=== PATIENT | female | born 1980 | race Caucasian/White ===

== ENCOUNTER → 2023-03-18 | Outpatient (CLI) | payer BC ==
--- NOTE | 2023-04-02 13:18 | MM ---
Reason for Exam: Screening (asymptomatic). Last mammogram was performed 1 year(s) and 1 month(s) ago. Patient History: Menarche at age 12. First Full-Term at age 19. Hysterectomy at age 35. Patient has history of breast feeding. Maternal aunt had breast cancer, age 40. Risk Values: Cara 5 year model risk: 0.6%. NCI Lifetime model risk: 8.8%. Prior Study Comparison: 03/22/2016 Bilateral Screening Mammogram, [facility] . 11/10/2019 Bilateral Screening Mammogram, [facility] . 02/26/2022 Bilateral Screening Mammogram, [facility] . Tissue Density: The breast tissue is heterogeneously dense. This may lower the sensitivity of mammography. Findings: Analyzed By CAD. Asymmetry right breast measuring 13 mm 8.0 cm from nipple in the right breast on CC view not well appreciated on MLO view. Asymmetry left breast measuring 18 mm 6.6 MET from the nipple on CC view. Overall Assessment: Incomplete: need additional imaging evaluation, BI-RAD 0 Management: Diagnostic Mammogram of both breasts. [facility] will attempt to contact patient to return for supplemental views and ultrasound if indicated. Patient should continue monthly self-breast exams. A clinical breast exam by your physician is recommended on an annual basis. This exam should not preclude additional follow-up of suspicious palpable abnormalities. Note on Cara scores and lifetime risk: 1. A Cara score greater than 3% is considered moderate risk. If this is the case, consider specialist referral to assess eligibility for a risk reducing agent. 2. If overall lifetime risk for the development of breast cancer is 20% or higher, the patient may qualify for future screening with alternating mammogram and breast MRI. Electronically signed and approved by: Suresh Car DO
== END | disposition home or self-care (01) ==
LOC: RADMAMWWP 16:13
PROVIDERS: ATTEND Family Medicine
DX: Z12.31 Encounter for screening mammogram for malignant neoplasm of breast (principal); Z80.3 Family history of malignant neoplasm of breast
CPT/HCPCS: 77067

== ENCOUNTER → 2023-04-04 | Outpatient (CLI) | payer BC, OTHER ==
--- NOTE | 2023-04-04 09:24 | MM ---
Reason for Exam: Additional evaluation requested from prior study. Last screening mammogram was performed less than 1 month ago. Patient History: Menarche at age 12. First Full-Term at age 19. Hysterectomy at age 35. Patient has history of breast feeding. Maternal aunt had breast cancer, age 40. Risk Values: Cara 5 year model risk: 0.6%. NCI Lifetime model risk: 8.8%. Prior Study Comparison: 02/26/2022 Bilateral Screening Mammogram, [facility] . 03/18/2023 Bilateral MG screening mammo w CAD, [facility]. Tissue Density: The breast tissue is heterogeneously dense. This may lower the sensitivity of mammography. Findings: Analyzed By CAD. Under compression no persistent suspicious focal asymmetries are evident. No suspicious groups of microcalcifications, spiculated or lobular masses, architectural distortion or other secondary signs of malignancy are mammographically apparent. Overall Assessment: Benign, BI-RAD 2 Management: Screening Mammogram of both breasts in 1 year. A negative mammogram report should not preclude additional follow up of suspicious palpable abnormalities. Patient should continue monthly self breast exam. A clinical breast exam by your physician is recommended on an annual basis and results should be correlated with mammographic findings. Electronically signed and approved by: Moises Stafford D.O. Radiologis
== END | disposition home or self-care (01) ==
LOC: RADMAMWWP 08:42
PROVIDERS: ATTEND Family Medicine
DX: R92.333 Mammographic heterogeneous density, bilateral breasts (principal); Z80.3 Family history of malignant neoplasm of breast
CPT/HCPCS: 77062; 77066

== ENCOUNTER 2023-07-24 07:38 | Day surgery (SDC) | payer OTHER ==
[2023-07-21 16:34] VITALS: BMI 29.5
--- NOTE | 2023-07-24 08:03 | P.GSHP ---
History of Present Illness H&P Date: 07/24/23 CHIEF COMPLAINT: Change in bowel habits HISTORY OF PRESENT ILLNESS: The patient is a 43-year-old female who presents for change in bowel habits over 6 month. Lower endoscopy was offered for further evaluation and management. PAST MEDICAL HISTORY: Please see list. PAST SURGICAL HISTORY: Please see list. MEDICATIONS: Please see list. ALLERGIES: Please see list. SOCIAL HISTORY: No illicit drug use FAMILY HISTORY: No reports of Crohn disease or ulcerative colitis. REVIEW OF ORGAN SYSTEMS: CONSTITUTIONAL: No reports of fevers or chills. PHYSICAL EXAM: VITAL SIGNS: Stable GENERAL: Well-developed pleasant in no acute distress. HEENT: No scleral icterus. Extraocular movements grossly intact. Moist buccal mucosa. NECK: Supple without lymphadenopathy. CHEST: Unlabored respirations. Equal bilateral excursions. CARDIOVASCULAR: Regular rate and rhythm. Distal 2+ pulses. ABDOMEN: Soft, nontender, nondistended. MUSCULOSKELETAL: No clubbing, cyanosis, or edema. ASSESSMENT: 1. Change in bowel habit PLAN: 1. Recommend proceeding with a lower endoscopy Past Medical History Past Medical History: Hyperlipidemia, Hypertension Additional Past Medical History / Comment(s): abdominal pain intermittently w/ n/v History of Any Multi-Drug Resistant Organisms: None Reported Past Surgical History: Hysterectomy Additional Past Surgical History / Comment(s): tummy tuck and breast left Past Anesthesia/Blood Transfusion Reactions: No Reported Reaction Additional Past Anesthesia/Blood Transfusion Reaction / Comment(s): no hx blood transfusion Smoking Status: Never smoker - Past Family History Mother Family Medical History: No Reported History, Cancer Additional Family Medical History / Comment(s): maternal aunt breast CA Medications and Allergies Home Medications Medication Instructions Recorded Confirmed Type ARIPiprazole [Abilify] 2 mg PO HS 07/21/23 07/21/23 History Acetaminophen [Tylenol] 325 - 650 mg PO Q4H PRN 07/21/23 07/21/23 History Atorvastatin [Lipitor] 20 mg PO HS 07/21/23 07/21/23 History Escitalopram [Lexapro] 20 mg PO HS 07/21/23 07/21/23 History Multivitamin/Iron/Folic Acid 1 each PO DAILY 07/21/23 07/21/23 History [Centrum Women Tablet] lisinopriL [Lisinopril] 40 mg PO QAM 07/21/23 07/21/23 History Allergies Allergy/AdvReac Type Severity Reaction Status Date / Time No Known Allergies Allergy Verified 07/24/23 08:00
[2023-07-24] MEDS: LACTATED RINGERS 1,000 ML IV SCH (08:17)
[2023-07-24] MEDS ORDERED: LIDOCAINE 1% INJ 10MG/ML (20 ML MDV) ONE (08:23)
[2023-07-24] MEDS ORDERED: PROPOFOL 10 MG/ML 20 ML VIAL IV ONE (08:23)
[2023-07-24 08:36] LABS: Basophils # (A) 0.1 k/uL (0-0.2); Basophils % (A) 1 %; Eosinophils # (A) 0.1 k/uL (0-0.7); Eosinophils % (A) 2 %; HCT 41.4 % (34.0-46.0); HGB 13.6 gm/dL (11.4-16.0); Lymphocytes # (A) 2.1 k/uL (1.0-4.8); Lymphocytes % (A) 31 %; MCH 30.9 pg (25.0-35.0); MCV 93.9 fL (80.0-100.0); Mean Platelet Volume 7.2; Monocytes # (A) 0.3 k/uL (0-1.0); Monocytes % (A) 5 %; Neutrophils # (A) 3.9 k/uL (1.3-7.7); Neutrophils % (A) 60 %; Platelet Count 415 k/uL (150-450); RBC 4.41 m/uL (3.80-5.40); RDW 12.5 % (11.5-15.5); WBC 6.6 k/uL (3.8-10.6)
[2023-07-24 08:41] VITALS: RESP 16; TEMP 97.8
--- NOTE | 2023-07-24 08:59 | P.PCN ---
Date of Procedure: 07/24/23 Description of Procedure: PREOPERATIVE DIAGNOSIS: Gastrointestinal bleeding POSTOPERATIVE DIAGNOSIS: Gastritis with bleeding Arteriovenous malformation, angular incisura Gastroesophageal reflux disease Diaphragmatic hiatal hernia OPERATION: Esophagogastroduodenoscopy with Gold probe for arteriovenous malformation Esophagogastroduodenoscopy with biopsies along esophagus,antrum and duodenum SURGEON: Nicolle Smith MD ANESTHESIA: MAC. INDICATIONS: The patient is a 43-year-old female who presents with reflux disease. Benefits and risks of the procedure were described. Informed consent was obtained. DESCRIPTION: The patient was brought into the endoscopy suite and laid in the left lateral decubitus position. An Olympus gastroscope was passed along the posterior oropharynx down to the distal esophagus where the squamocolumnar junction was encountered at 35 cm from the incisors. The stomach was entered and no bile reflux was found. Angularis incisura arteriovenous malformation was identified with her pre-existing history of GI bleed and ablated using gold probe. Additional findings are listed below. Biopsies with cold forceps were obtained of the antrum. The first through third portion of the duodenum was examined. Retroflexion of the scope confirmed Hill grade 2 lower esophageal valve. The squamocolumnar junction demonstrated LA grade B erosive esophagitis. The stomach was desufflated. The patient tolerated the procedure well. FINDINGS: Squamocolumnar junction 35 cm from the incisors. Diaphragmatic hiatus at 35 cm. Hill grade 2 lower esophageal valve. LA grade B erosive esophagitis.Biopsies obtained Biopsies obtained of the duodenum. Chronic gastritis with biopsies obtained. Angularis incisura arteriovenous malformation ablated using gold probe. RECOMMENDATIONS: Upper endoscopy as needed.
--- NOTE | 2023-07-24 09:08 | P.PCN ---
Date of Procedure: 07/24/23 Description of Procedure: PREOPERATIVE DIAGNOSIS: Gastrointestinal bleeding Chronic constipation POSTOPERATIVE DIAGNOSIS: Internal and external hemorrhoids, grade 2 OPERATION: Colonoscopy to the cecum, ileocecal valve and appendiceal orifice. SURGEON: Nicolle Smith MD. ANESTHESIA: MAC. INDICATIONS: The patient is a 43-year-old female who presents with GI bleed. Benefits and risks were described and informed consent was obtained. DESCRIPTION OF PROCEDURE: The patient had undergone GoLYTELY prep. The patient had been brought into the operating room and laid in the left lateral decubitus position. After adequate intravenous sedation, the rectum was examined with 2% lidocaine jelly. No exte rnal hemorrhoids were encountered. The rectal tone was within normal limits. No lesions were palpated in the rectal vault. An Olympus colonoscope was advanced until the cecum, ileocecal valve and appendiceal orifice were clearly viewed. The prep was good. No scattered diverticulosis was encountered. No colonic polyps were found. No evidence of focal colitis was found. Retroflexion of the scope demonstrated grade 2 internal hemorrhoids without active bleeding or inflammation. The colon was desufflated. The patient had tolerated the procedure well. Withdrawal time was over 6 minutes. FINDINGS: Aronchick preparation quality scale 2 (1-5) Internal hemorrhoids, grade 2 No sigmoid diverticulosis. No external prolapsed hemorrhoids. No arteriovenous malformations. No adenomatous polyps. No focal colitis. RECOMMENDATIONS: Lower endoscopy in 10 years, 2033 Plan - Discharge Summary Discharge Rx Participant: No New Discharge Prescriptions: New Sucralfate [Carafate] 1 gm PO BID #30 tablet Continue lisinopriL 40 mg PO QAM Atorvastatin [Lipitor] 20 mg PO HS Escitalopram [Lexapro] 20 mg PO HS Acetaminophen [Tylenol] 325 - 650 mg PO Q4H PRN PRN Reason: Pain ARIPiprazole [Abilify] 2 mg PO HS Multivitamin/Iron/Folic Acid [Centrum Women Tablet] 1 each PO DAILY Discharge Medication List ARIPiprazole [Abilify] 2 mg PO HS 07/21/23 [History] Acetaminophen [Tylenol] 325 - 650 mg PO Q4H PRN 07/21/23 [History] Atorvastatin [Lipitor] 20 mg PO HS 07/21/23 [History] Escitalopram [Lexapro] 20 mg PO HS 07/21/23 [History] Multivitamin/Iron/Folic Acid [Centrum Women Tablet] 1 each PO DAILY 07/21/23 [History] lisinopriL 40 mg PO QAM 07/21/23 [History] Sucralfate [Carafate] 1 gm PO BID #30 tablet 07/24/23 [Rx] Follow up Appointment(s)/Referral(s): Nicolle Smith MD [STAFF PHYSICIAN] - 07/29/23 (TELEHEALTH - DR WILL CALL [facility] BETWEEN 8 am to 8 pm) Patient Instructions/Handouts: Gastritis (DC), Diet for Stomach Ulcers and Gastritis (GEN) Activity/Diet/Wound Care/Special Instructions: Repeat colonoscopy in 10 years, 2033 Discharge Disposition: HOME SELF-CARE
[2023-07-24 09:27] VITALS: BP 108/71; PULSE 77
== END 2023-07-24 09:29 | disposition home or self-care (01) ==
LOC: ORWHC2ENDO 07:38
PROVIDERS: ATTEND Surgery Plastic and Reconstructive Surgery
DX: K29.50 Unspecified chronic gastritis without bleeding (principal); K44.9 Diaphragmatic hernia without obstruction or gangrene; K21.9 Gastro-esophageal reflux disease without esophagitis; K64.1 Second degree hemorrhoids; K64.4 Residual hemorrhoidal skin tags; K63.89 Other specified diseases of intestine; I10 Essential (primary) hypertension; E78.5 Hyperlipidemia, unspecified; Z90.710 Acquired absence of both cervix and uterus; Z79.899 Other long term (current) drug therapy
CPT/HCPCS: 88305; 85025; 45378; 43239; 43255; J2001; J2704; 43270

== ENCOUNTER 2023-07-25 08:32 | Day surgery (SDC) | payer OTHER ==
[2023-07-21 15:53] VITALS: BMI 29.5
--- NOTE | 2023-07-25 07:01 | P.GSHP ---
History of Present Illness H&P Date: 07/25/23 CHIEF COMPLAINT: Cholecystitis HISTORY OF PRESENT ILLNESS: The patient is a 43-year-old female who presents with history of epigastric including right upper quadrant abdominal pain. She underwent diagnostic studies for her gallbladder. Separately her clinical picture was consistent with cholecystitis. Now she presents for surgical intervention. PAST MEDICAL HISTORY: Please see list PAST SURGICAL HISTORY: Please see list MEDICATIONS: Please see list ALLERGIES: Please see list SOCIAL HISTORY: Please see list FAMILY HISTORY: Please see list REVIEW OF ORGAN SYSTEMS: CONSTITUTIONAL: No reports of fevers or chills. HEENT: Denies any troubles with the vision or hearing. ENDOCRINE: No reports of hypothyroidism. No diabetes. RESPIRATORY: No recent pneumonias. CARDIOVASCULAR: Denies chest pain or palpitations GI: No blood in stools or constipation. MUSCULOSKELETAL: Has occasional joint pain including back pain. NEURO: No seizure disorders or headaches. No recent stroke. PSYCH: No depression or suicidal ideation. GENITOURINARY: No active blood in urine. No urinary hesitancy. HEMATOLOGIC: No personal or family history of DVTs or pulmonary emboli. SKIN: No skin cancer. PHYSICAL EXAM: VITAL SIGNS: Afebrile vital signs stable GENERAL: Well-developed pleasant in no acute distress. HEENT: No scleral icterus. Extraocular movements grossly intact. Moist buccal mucosa. NECK: Supple without lymphadenopathy. CHEST: Unlabored respirations. Equal bilateral excursions. CARDIOVASCULAR: Regular rate regular rhythm rhythm. Distal 2+ pulses. ABDOMEN: Soft, nondistended. Tender along the epigastrium and right upper quadrant. MUSCULOSKELETAL: No clubbing, cyanosis, or edema. NEURO: Cranial nerves II to XII within normal limits. No focal or lateralizing signs. PSYCH: Alert and oriented to person, place and time. SKIN: Well-perfused good skin turgor. ASSESSMENT: 1. Epigastric and right upper quadrant abdominal pain 2. Chronic cholecystitis 3. Symptomatic gallstones. PLAN: 1. Will need a robotic cholecystectomy possible open. Benefits and risks were described. 2. Heparin for DVT prophylaxis 5000 units. 3. Antibiotic prophylaxis. 4. CBC and CMP on day of procedure 5. Non-narcotic pre and post op pain management reviewed. 6. Indocyanine green for biliary imaging. Past Medical History Past Medical History: Hyperlipidemia, Hypertension Additional Past Medical History / Comment(s): abdominal pain intermittently w/ n/v History of Any Multi-Drug Resistant Organisms: None Reported Past Surgical History: Hysterectomy Additional Past Surgical History / Comment(s): tummy tuck and breast left Past Anesthesia/Blood Transfusion Reactions: No Reported Reaction Additional Past Anesthesia/Blood Transfusion Reaction / Comment(s): no hx blood transfusion Smoking Status: Never smoker - Past Family History Mother Family Medical History: No Reported History, Cancer Additional Family Medical History / Comment(s): maternal aunt breast CA Medications and Allergies Home Medications Medication Instructions Recorded Confirmed Type ARIPiprazole [Abilify] 2 mg PO HS 07/21/23 07/21/23 History Acetaminophen [Tylenol] 325 - 650 mg PO Q4H PRN 07/21/23 07/21/23 History Atorvastatin [Lipitor] 20 mg PO HS 07/21/23 07/21/23 History Escitalopram [Lexapro] 20 mg PO HS 07/21/23 07/21/23 History Multivitamin/Iron/Folic Acid 1 each PO DAILY 07/21/23 07/21/23 History [Centrum Women Tablet] lisinopriL 40 mg PO QAM 07/21/23 07/21/23 History Sucralfate [Carafate] 1 gm PO BID #30 tablet 07/24/23 Rx Allergies Allergy/AdvReac Type Severity Reaction Status Date / Time No Known Allergies Allergy Verified 07/24/23 08:00
[~2023-07-25 08:32] MED LIST: HYDROmorphone 0.5 MG/0.5 ML SYRINGE IVP PRN; LIDOCAINE 1% (10MG/ML) FOR IV START INTRADERMA PRN; MIDAZOLAM 2 MG/2 ML VIAL IV PRN; ONDANSETRON 4 MG/2 ML VIAL IVP PRN; SCOPOLAMINE 1 MG/72 HR PATCH TRANSDERM STA
[2023-07-25] MEDS: ACETAMINOPHEN TAB 500 MG TAB PO PRN (08:55)
[2023-07-25] MEDS ORDERED: diphenhydrAMINE 50 MG/ML 1 ML VIAL ONE (09:01)
[2023-07-25] MEDS: diphenhydrAMINE 50 MG/ML 1 ML VIAL IVP ONE (09:05)
[2023-07-25] MEDS: LACTATED RINGERS 1,000 ML IV SCH (09:05)
[2023-07-25] MEDS: DEXAMETHASONE SOD PHOSPHATE 4 MG/ML 1 ML VIAL IV ONE (09:05)
[2023-07-25] MEDS: ONDANSETRON 4 MG/2 ML VIAL IVP ONE (09:05)
[2023-07-25] MEDS: HEPARIN SODIUM,PORCINE 5,000 UNIT/ML 1 ML VIAL SQ PRN (09:05)
[2023-07-25] MEDS ORDERED: FAMOTIDINE 20 MG/2 ML VIAL IV SCH (09:15)
[2023-07-25 09:23] LABS: ALT 53 U/L (4-34); AST 29 U/L (14-36); African American GFR (CKD) >90 (>60 ml/min/1.73 sqM); Albumin 4.7 g/dL (3.5-5.0); Alkaline Phosphatase 73 U/L (38-126); Anion Gap 9 mmol/L; Blood Urea Nitrogen 11 mg/dL (7-17); Calcium 9.5 mg/dL (8.4-10.2); Carbon Dioxide 26 mmol/L (22-30); Chloride 105 mmol/L (98-107); Glucose 94 mg/dL (74-99); Non-African American GFR(CKD) >90 (>60 ml/min/1.73 sqM); Potassium 4.3 mmol/L (3.5-5.1); Sodium 140 mmol/L (137-145); Total Bilirubin 1.1 mg/dL (0.2-1.3); Total Protein 7.4 g/dL (6.3-8.2)
[2023-07-25] MEDS ORDERED: ROCURONIUM 10 MG/ML (5 ML VIAL) IV ONE (09:32)
[2023-07-25] MEDS ORDERED: PROPOFOL 10 MG/ML 20 ML VIAL IV ONE (09:32)
[2023-07-25] MEDS ORDERED: SUCCINYLCHOLINE CHLORIDE 200 MG/10 ML VIAL IV ONE (09:32)
[2023-07-25] MEDS ORDERED: KETOROLAC 30 MG/ML 1 ML VIAL ONE (09:32)
[2023-07-25] MEDS ORDERED: GLYCOPYRROLATE 0.2 MG/ML 2 ML VIAL ONE (09:32)
[2023-07-25] MEDS ORDERED: NEOSTIGMINE 1 MG/ML 10 ML VIAL ONE (09:32)
[2023-07-25] MEDS ORDERED: LIDOCAINE 1% INJ 10MG/ML (20 ML MDV) ONE (09:32)
[2023-07-25] MEDS ORDERED: PHENYLEPHRINE 10 MG/ML VIAL ONE (09:32)
[2023-07-25] MEDS ORDERED: fentaNYL (PF) 50 MCG/ML 2 ML AMP ONE (09:32)
[2023-07-25] MEDS ORDERED: MIDAZOLAM 2 MG/2 ML VIAL ONE (09:32)
[2023-07-25 09:39] VITALS: RESP 16
[2023-07-25] MEDS: LIDOCAINE 1%-EPI 1:100,000 20 ML VIAL SQ ONE ×2 (09:52→09:59)
[2023-07-25] MEDS: LACTATED RINGERS 1,000 ML IV ONE (11:01)
[2023-07-25 11:59] VITALS: TEMP 97
--- NOTE | 2023-07-25 12:18 | P.OP ---
Date of Procedure: 07/25/23 Description of Procedure: SURGEON: GARLAND SMITH MD PREOPERATIVE DIAGNOSES: 1. Symptomatic gallstones 2. Right upper quadrant abdominal pain 3. Hypertensive heart disease 4. Depressive disorder 5. Hyperlipidemia POSTOPERATIVE DIAGNOSES: 1. Acute cholecystitis with symptomatic gallstones 2. Right upper quadrant abdominal pain 3. Hypertensive heart disease 4. Depressive disorder 5. Hyperlipidemia 6. Peritoneal adhesions right upper quadrant, pericholecystic OPERATION: 1. Robotic-assisted da Bianca Xi laparoscopic cholecystectomy, multiport with FIREFLY 2. Robotic-assisted da Bianca Xi laparoscopic lysis of adhesions ESTIMATED BLOOD LOSS: 30 mL. SPECIMENS REMOVED: Gallbladder. COMPLICATIONS: None. OPERATIVE FINDINGS: 1. Moderate scarring over entire gallbladder with peritoneal adhesions, pericholecystic with features of chronic cholecystitis 2. Multiple gallstones over 6 identified at least 8 mm in size INDICATIONS: The patient is a 43-year-old female who presents with symptomatic gallstones. Robotic assisted laparoscopic approach was described. Benefits and risks of the procedure including but not limited to bleeding, infection, injury to the biliary tree was described. Informed consent was obtained. DESCRIPTION OF PROCEDURE: Patient was brought to the operating room, placed in supine position. After general induction, the abdomen had been prepped and draped in standard sterile fashion. The robotic da Bianca XI system was primed. After a timeout protocol was performed, the patient had been prepped and draped in standard sterile fashion. The patient was injected with indocyanine green. A 5 mm 0 degrees laparoscopic trocar entry was performed along the left upper quadrant. The abdomen insufflated to 15 mmHg pressure which was tolerated well. Diagnostic laparoscopy demonstrated no injury to bowel viscera or mesentery. The liver surface was unremarkable. Next, two 8 mm robotic ports were placed along the right upper abdomen. The camera 8-mm port was maintained along the epigastrium. Another 8 mm port was placed along the left upper abdominal wall after exchanging the 5 mm port. Please note that the ports were placed at least 10 to 15 cm away from the target anatomy of the gallbladder. The robot was docked along the left lateral abdomen. The patient was repositioned in reverse Trendelenburg position. Using a grasper for arm 3, a grasper for arm 4, including hook cautery for arm 1, the robotic system was docked and primed as described. Instruments were interchanged by the assistant branch operations manager including hook cautery, Bovie cautery and clip appliers. I had sat at the console. The gallbladder was scarred with peritoneal adhesions. Lysis of adhesions was performed to free the gallbladder from the surrounding tissues for over 50% of the case. Next attention was brought to the infundibulum and cystic structures. The infundibulum and cystic duct were dissected free from surrounding tissues. The cystic duct was isolated but rather large due to large gallstones. The common bile duct was also dilated. Both structures were identified using FIREFLY. Dome down technique was performed and dissecting the gallbladder from the liver fossa prior to any division of structures. FIREFLY was used to identify the cystic artery and cystic structures. A critical view of safety was obtained. Large PLASTIC clips were used throughout the entire case. Clips were placed on accessory cystic arteries however the cystic duct was moderately dilated due to the large gallstone. The trocar of the left upper quadrant was exchanged for a 12 mm trocar. A 45 mm green robotic staple load was placed fine across the infundibulum without injury to the common bile duct. No bile or blood was identified from the staple line is confirmed using indocyanine green FIRELFY. Electro-Bovie cautery was used to remove the gallbladder from the hepatic fossa. Hemostasis was checked and found to be adequate. The robot was undocked. I re-scrubbed into the case. Using a 10 mm Endo Catch bag via the left upper quadrant incision, the specimen was removed from the abdominal cavity. All pneumoperitoneum instruments were evacuated from the abdominal cavity. The incisions were reapproximated using 4-0 Monocryl in an interrupted subcuticular fashion. At the left upper quadrant, the incision was widened to remove very large multiple gallstones. Lizandro-Elmer and 0 Vicryl was used to close the fascia. Please note along the trocar sites, local anesthetic was placed as a field block prior to insertion of all instruments. Liquid glue was applied to the skin. At the end of the procedure needle, sponge, and instrument count had been verified correct by the rn surgical pcu. The patient was transferred to postanesthesia care unit in stable condition. Intraoperative films were shared with the patient's family. Plan - Discharge Summary Discharge Rx Participant: No New Discharge Prescriptions: New Simethicone [Gas-X] 125 mg PO AC-TID PRN #20 capsule PRN Reason: Pain Ibuprofen [Motrin] 600 mg PO Q8HR PRN #30 tab PRN Reason: Pain Acetaminophen Tab [Tylenol Tab] 1,000 mg PO Q6HR PRN #30 tablet PRN Reason: Pain Continue lisinopriL 40 mg PO QAM Atorvastatin [Lipitor] 20 mg PO HS Escitalopram [Lexapro] 20 mg PO HS Acetaminophen [Tylenol] 325 - 650 mg PO Q4H PRN PRN Reason: Pain ARIPiprazole [Abilify] 2 mg PO HS Multivitamin/Iron/Folic Acid [Centrum Women Tablet] 1 each PO DAILY Sucralfate [Carafate] 1 gm PO BID #30 tablet Discharge Medication List ARIPiprazole [Abilify] 2 mg PO HS 07/21/23 [History] Acetaminophen [Tylenol] 325 - 650 mg PO Q4H PRN 07/21/23 [History] Atorvastatin [Lipitor] 20 mg PO HS 07/21/23 [History] Escitalopram [Lexapro] 20 mg PO HS 07/21/23 [History] Multivitamin/Iron/Folic Acid [Centrum Women Tablet] 1 each PO DAILY 07/21/23 [History] lisinopriL 40 mg PO QAM 07/21/23 [History] Sucralfate [Carafate] 1 gm PO BID #30 tablet 07/24/23 [Rx] Acetaminophen Tab [Tylenol Tab] 1,000 mg PO Q6HR PRN #30 tablet 07/25/23 [Rx] Ibuprofen [Motrin] 600 mg PO Q8HR PRN #30 tab 07/25/23 [Rx] Simethicone [Gas-X] 125 mg PO AC-TID PRN #20 capsule 07/25/23 [Rx] Follow up Appointment(s)/Referral(s): Garland Smith MD [STAFF PHYSICIAN] - 07/29/23 (TELEHEALTH - WILL CALL YOU BETWEEN 9 am to 8 pm) Patient Instructions/Handouts: Laparoscopic Cholecystectomy (DC), Low Fat Diet (DC) Activity/Diet/Wound Care/Special Instructions: TELEHEALTH - WILL CALL YOU BETWEEN 9 am to 8 pm Recommend low-fat diet for the next 2 days. No lifting over 10 pounds in 2 weeks until August 07July shower. No bath tub soaks for two weeks until August 07 Diet as tolerated. Use Tylenol, simethicone and ibuprofen or Aleve scheduled for the next 24-48 hours for best pain relief. Use ice along incisions for today to prevent swelling. Discharge Disposition: HOME SELF-CARE
[2023-07-25] MEDS ORDERED: ACETAMINOPHEN TAB 500 MG TAB ONE (12:19)
[2023-07-25] MEDS: ACETAMINOPHEN TAB 500 MG TAB PO ONE (12:25)
[2023-07-25 13:29] VITALS: BP 128/72; PULSE 78
== END 2023-07-25 13:45 | disposition home or self-care (01) ==
LOC: OR 08:32
PROVIDERS: ATTEND Surgery Plastic and Reconstructive Surgery
DX: K80.10 Calculus of gallbladder with chronic cholecystitis without obstruction (principal); I11.9 Hypertensive heart disease without heart failure; F32.A Depression, unspecified; E78.5 Hyperlipidemia, unspecified; K66.0 Peritoneal adhesions (postprocedural) (postinfection); Z90.710 Acquired absence of both cervix and uterus; Z98.890 Other specified postprocedural states; Z80.3 Family history of malignant neoplasm of breast; Z79.899 Other long term (current) drug therapy
CPT/HCPCS: 47563; S2900; 80053; 88304

== ENCOUNTER → 2024-01-12 | Outpatient (CLI) | payer OTHER ==
--- NOTE | 2024-01-14 15:20 | BMR ---
LOCATION: The exam was performed at the [facility] facility and was provided to review by [facility]. EXAM DATE: 01/12/2024 EXAM DESCRIPTION: MRI-Breast Bilat (W/WO Contrast) INDICATION: >20% lifetime risk for malignancy, high risk surveillance. Twin sister recently diagnosed with breast cancer. History of breast lift in 2020. COMPARISON: Comparison was made to prior relevant imaging available in PACS TECHNIQUE: Multiplanar multisequence breast MRI was performed prior to and after administration of 7.5 mL of Gadavist intravenously. Post processing was performed utilizing a [employer] workstation. The exam was performed at [facility] institution and submitted to review by [facility] radiologist. FINDINGS: There is moderate symmetric background parenchymal enhancement in breasts that are composed of scattered fibroglandular tissue.. RIGHT BREAST: Postsurgical changes are present in the breast. Review of the dynamic contrast enhanced series shows no rapidly enhancing masses, suspicious enhancement patterns or other abnormalities. Scattered enhancing foci in the breast, none appearing different than the rest, likely due to background parenchymal enhancement. The T2 weighted series show no abnormality. LEFT BREAST: Postsurgical changes are present in the breast. Review of the dynamic contrast enhanced series shows no rapidly enhancing masses, suspicious enhancement pattern or other abnormalities. Scattered enhancing foci in the breast, none appearing different than the rest, likely due to background parenchymal enhancement. Nonenlarged benign intramammary lymph node in the upper outer posterior depth of the breast. The T2 weighted series show no abnormality. LYMPH NODES: No axillary or internal mammary lymphadenopathy. IMPRESSION: Right breast: BI-RADS Category 1-negative. No MRI evidence of malignancy. Recommendation: MRI screening in 1 year Left breast: BI-RADS Category 1-negative. No MR evidence of malignancy. Recommendation: MRI screening in 1 year. OVERALL ASSESSMENT- BI-RADS 1 ANNUAL SCREENING BREAST MRI IN ADDITION TO MAMMOGRAPHY IS RECOMMENDED IN PATIENTS WITH LIFETIME RISK OF BREAST CANCER >20% MTDD
== END ==
LOC: RADMRIMAIN 10:14
PROVIDERS: ATTEND Family Medicine
DX: Z91.89 Other specified personal risk factors, not elsewhere classified (principal); N60.91 Unspecified benign mammary dysplasia of right breast; Z80.3 Family history of malignant neoplasm of breast
CPT/HCPCS: 77049